=== PATIENT | female | born 1980 | race Two or more races ===

== ENCOUNTER 2020-05-16 16:55 | Emergency (ER) | payer SELFPAY ==
--- NOTE | 2020-05-16 23:05 | ER Document Report ---
ED General - General Chief Complaint: Cough Stated Complaint: COUGH/SORE THROAT Primary Care Provider: ABHAY MARTINEZ MD [Primary Care Provider] - Follow up as needed Notes: Patient is a 39-year-old female with no reported past medical history who presents to the emergency department with a chief complaint of cough. The patient states last week she was exposed to someone that she works with closely who was diagnosed COVID-19 positive. 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 She states the COVID-19 test she underwent came back negative and she returned to work. She st ates on Wednesday she started feeling generally drained and weak. She states Wednesday she began having a cough after going to work. They noticed that she was ill and sent her home. They stated today that she needed to come and be retested since she was now symptomatic. She admits to a dry cough and a little bit of a sore throat otherwise no reported symptoms. No chest pain. No shortness of breath, rash, diarrhea, vomiting, chills, fever, night sweats, urinary complaints or recent travel. Notes her son recently became sick as well. Past Medical History - Social History Smoking Status: Never Smoker Chew tobacco use (# tins/day): No Frequency of alcohol use: None Drug Abuse: None Family History: Reviewed & Not Pertinent Patient has homicidal ideation: No Review of Systems - Review of Systems Constitutional: Malaise EENT: Throat pain Respiratory: Cough -: Yes All other systems reviewed and negative Physical Exam - Vital signs Vitals: Temp Pulse Resp BP Pulse Ox 98.7 F 100 15 139/97 H 100 05/16/20 20:02 05/16/20 20:02 05/16/20 20:02 05/16/20 20:02 05/16/20 20:02 - General General appearance: Appears well, Alert In distress: None - HEENT Head: Normocephalic, Atraumatic Eyes: Normal Conjunctiva: Normal Extraocular movements intact: Yes Eyelashes: Normal Pupils: PERRL Ears: Normal External canal: Normal Tympanic membrane: Normal Mouth/Lips: Normal Mucous membranes: Normal Pharynx: Other - Lesions noted to the tonsillar fossa's bilaterally. Some tonsilloliths noted but no tonsillar hypertrophy or erythema. Uvula is midline without edema or erythema. Airway is patent. Patient is handling secretions well. No sublingual or submental swelling. No trismus. Neck: Normal, Supple. No: Lymphadenopathy - Respiratory Respiratory status: No respiratory distress Chest status: Nontender Breath sounds: Normal Chest palpation: Normal - Cardiovascular Rhythm: Regular Heart sounds: Normal auscultation - Extremities General upper extremity: Normal inspection, Nontender, Normal color, Normal ROM, Normal temperature General lower extremity: Normal inspection, Nontender, Normal color, Normal ROM, Normal temperature, Normal weight bearing. No: Raheem's sign - Neurological Neuro grossly intact: Yes Cognition: Normal Orientation: AAOx4 - Psychological Associated symptoms: Normal affect, Normal mood Course - Re-evaluation Re-evalutation: 05/17/20 01:00 Chest x-ray negative per radiologist. Patient strep swab was negative, pending culture. She is currently a patient under investigation for COVID-19. She was given structures for self quarantine. Counseled her regarding the importance of close outpatient follow-up and advised that she return here or any ER immediately with any new, persistent or worsening symptoms. She verbalized understood and agreed. - Vital Signs Vital signs: Temp Pulse Resp BP Pulse Ox 98.7 F 100 15 139/97 H 100 05/16/20 20:02 05/16/20 20:02 05/16/20 20:02 05/16/20 20:02 05/16/20 20:02 Discharge - Discharge Clinical Impression: Person under investigation for COVID-19 Condition: Stable Disposition: HOME, SELF-CARE Instructions: COVID-19 Guidance for Persons Under Investigation Additional Instructions: You have been swabbed for COVID-19 testing today. Please remain and self quarantine at home until you receive a call with a negative result or until you receive further guidance from a medical professional if you receive a positive result. Please follow-up with your regular doctor for reevaluation. Please return here or any ER immediately with any new, persistent or worsening symptoms. Referrals: ABHAY MARTINEZ MD [Primary Care Provider] - Follow up as needed
--- NOTE | 2020-05-17 01:00 | RADIOLOGY REPORT (SQ) ---
EXAM DESCRIPTION: XR CHEST 1 VIEW COMPLETED DATE/TME: 05/16/2020 23:01 CLINICAL HISTORY: 39 years, Female, cough COMPARISON: None. NUMBER OF VIEWS: 1 TECHNIQUE: Portable chest LIMITATIONS: None. FINDINGS: The heart size is normal. The lungs are clear. There is no pneumothorax IMPRESSION: Negative chest copyright 2011 [employer]- All Rights Reserved
[2020-05-17 01:47] VITALS: BP 148/96
== END 2020-05-17 01:46 | disposition home or self-care (01) ==
LOC: ER 16:55
DX: R05 Cough (principal); J02.9 Acute pharyngitis, unspecified; J35.8 Other chronic diseases of tonsils and adenoids; R53.81 Other malaise; Z20.828 Contact with and (suspected) exposure to other viral communicable diseases
CPT/HCPCS: 99283; 87070; 87880; 87635; 71045; C9803